=== PATIENT | male | born 1965 | race Caucasian/White ===

== ENCOUNTER 2017-04-05 08:17 | Emergency (ER) | payer OTHER ==
[~2017-04-05] VITALS: Ht 177.8 cm; Wt 84.5 kg
[2017-04-05 08:21] VITALS: TEMP 36.5; Ht 177.8 cm; Wt 84.5 kg
[2017-04-05] MEDS ORDERED: ONDANSETRON INJ 2 MG/ML 2 ML VIAL IV STA (08:44)
[2017-04-05] MEDS ORDERED: [UNRECOGNIZED DRUG - OTHER] PO (08:44)
[2017-04-05] MEDS ORDERED: SODIUM CHLORIDE 0.9% 1000ML 1,000 ML IV STA (08:44)
[2017-04-05] MEDS ORDERED: METO25TA56 PO (08:44)
[2017-04-05] MEDS ORDERED: MoRPHine SULFATE 4 MG/ML 1 ML CARP\\VIAL IV STA (08:44)
[2017-04-05] MEDS ORDERED: LSN25 PO (08:44)
[2017-04-05] MEDS ORDERED: ASPI81TA28 PO (08:44)
[2017-04-05 08:55] LABS: COMPLETE YES; EOS % 1.3 %; HEMATOCRIT 41.5 % (42-52); IG% 0.2 %; LYMPH % 10.1 %; LYMPH ABS # 1.24 K/uL (1.2-3.4); MEAN CELL VOLUME 91.8 fL (80-100); MEAN CORPUSCULAR HEMOGLOBIN 30.5 pg (25-34); MEAN CORPUSCULAR HGB CONC 33.3 g/dl (32-36); MEAN PLATELET VOLUME 8.2 fL (7.4-10.4); MONO % 9.4 %; PLATELET COUNT 440 K/uL (130-400); RED BLOOD COUNT 4.52 M/uL (4.7-6.1); WHITE BLOOD COUNT 12.26 K/uL (4.8-10.8)
[2017-04-05] MEDS ORDERED: OPTIRAY 320 IV PRN (09:00)
[2017-04-05 09:20] LABS: BUN/CREATININE RATIO 15.7 (10-20); CALCIUM 9.3 mg/dl (8.5-10.1); POTASSIUM 3.8 mmol/L (3.5-5.1)
[2017-04-05] MEDS ORDERED: MoRPHine SULFATE 10 MG/ML CARP/VIAL IV STA ×2 (09:23→11:16)
[2017-04-05 10:24] LABS: URINE APPEARANCE CLEAR (CLEAR); URINE BILIRUBIN NEG (NEG); URINE COLOR YELLOW; URINE EPITHELIAL CELL AUTO 0-5 /lpf (0-5); URINE NITRITE NEG (NEG); URINE PH 6.5 (4.5-7.5); URINE SPECIFIC GRAVITY 1.011 (1.000-1.030); UROBILINOGEN NEG (NEG); ZZUR CULT IF INDIC CLEAN CATCH NO
[2017-04-05 10:27] LABS: MANUAL MICROSCOPIC REQUIRED? NO; REVIEW REQ? NO
--- NOTE | 2017-04-05 10:29 | DIAGNOSTIC IMAGING REPORT ---
CT OF THE ABDOMEN AND PELVIS WITH CONTRAST CLINICAL HISTORY: Left lower quadrant abdominal pain. COMPARISON STUDY: None. TECHNIQUE: Following IV administration of 93 mL of Optiray-320, axial images of the abdomen and pelvis were obtained from the lung bases to the proximal femurs. Images were reviewed in the axial, sagittal, and coronal planes. IV contrast was administered without complication. A dose lowering technique was utilized adhering to the principles of ALARA. CT DOSE: 444.00 mGy.cm FINDINGS: The heart is mildly enlarged. There is extensive coronary artery calcification. Median sternotomy wires are noted and postsurgical findings suggestive of bypass grafting. The liver, spleen, adrenal glands, pancreas and kidneys are unremarkable. There is no peripancreatic or pericholecystic infiltration. No hydronephrosis is present. There is moderate atherosclerotic plaque of the abdominal aorta. Diverticulosis of the distal descending colon is noted with focal moderate wall thickening of the distal descending colon and moderate pericolonic infiltration. There is no free air or abscess. No suspicious osseous lesions are present. The appendix is normal. There is no bowel obstruction. There are suspected postsurgical findings within the bilateral inguinal canals. IMPRESSION: Acute diverticulitis of the distal descending colon. No free air or abscess. Moderate focal wall thickening and pericolonic infiltration. Trace pelvic ascites. Electronically signed by: Robin Diaz M.D. 04/05/2017 10:28 AM Dictated Date/Time: 04/05/2017 10:21 AM
[2017-04-05] MEDS ORDERED: METRONIDAZOLE 500MG / 100ML NSS IV STA (10:33)
[2017-04-05] MEDS ORDERED: CIPROFLOXACIN 500 MG TAB PO STA (10:33)
[2017-04-05] MEDS ORDERED: METR-162 PO (11:12)
[2017-04-05] MEDS ORDERED: CIPR-255 PO (11:12)
[2017-04-05] MEDS ORDERED: OXYC1TAB3 PO (11:12)
[2017-04-05 11:36] VITALS: BP 127/67; PULSE 62; O2SAT 97
--- NOTE | 2017-04-05 14:39 | EMERGENCY ROOM VISIT NOTE ---
History Report prepared by Mandeep: Gaby Keene Under the Supervision of: Dr. Robin Mcgregor D.O. First contact with patient: 08:26 Chief Complaint: ABDOMINAL PAIN Stated Complaint: LEFT LOWER ABD. PAIN Nursing Triage Summary: Left sided abd pain with nausea, started Tuesday and has gotten progressively worse. History of Present Illness The patient is a 52 year old male who presents to the Emergency Room with complaints of waxing and waning left lower quadrant abdominal pain beginning 2 days ago. The patient reports that his abdominal pain started out as a mild pain but then began to worsen and was at its worst last night. He reports that his pain radiates up and towards the middle of his abdomen. He also states that he had the chills last night and was nauseous this morning. The patient reports that he has no history of diverticulitis, or a cholecystectomy or appendectomy. He states that he has a CABG and takes Lopressor and baby aspirin. The patient reports that his last bowel movement was this morning. Pt denies headache, change in vision, fevers, chest pain, shortness of breath, vomiting, diarrhea, pain with urination, and melena. Source of History: patient Onset: 2 days ago Position: abdomen (LLQ) Timing: worsening Associated Symptoms: + chills, + nausea, No fevers, No chest pain, No SOB, No vomiting, No diarrhea Review of Systems See HPI for pertinent positives & negatives. A total of 10 systems reviewed and were otherwise negative. Past Medical & Surgical Surgical Problems: (1) Hx of CABG (2) Hx of CABG Family History No pertinent family history stated. Social History Smoking Status: Never Smoker Current/Historical Medications Scheduled Aspirin (Aspirin Ec), 81 MG PO DAILY Ciprofloxacin Hcl (Cipro), 500 MG PO BID Lisinopril (Lisinopril), 2.5 MG PO DAILY Metoprolol Tartrate (Lopressor) (Lopressor), 1 TAB PO DAILY Metronidazole (Flagyl), 1 TAB PO TID [Research Drug], 1 TAB PO DAILY Scheduled PRN Oxycodone Immediate Rel Tab (Roxicodone Ir), 5 MG PO Q6H PRN for Pain Allergies Coded Allergies: No Known Allergies (Unverified , 04/05/17) Physical Exam Vital Signs Date Time Temp Pulse Resp B/P (MAP) Pulse Ox O2 Delivery O2 Flow Rate FiO2 04/05/17 11:36 62 20 127/67 97 Room Air 04/05/17 10:04 72 20 130/89 97 Room Air 04/05/17 09:33 64 20 140/97 99 Room Air 04/05/17 08:21 36.5 73 16 148/95 98 Room Air Physical Exam GENERAL: Sitting up in bed, disheveled, alert, no acute distress, non-toxic EYE EXAM: normal conjunctiva OROPHARYNX: no exudate, no erythema, lips, buccal mucosa, and tongue normal and mucous membranes are moist NECK: supple, no nuchal rigidity, no adenopathy, non-tender LUNGS: Clear to auscultation. Normal chest wall mechanics HEART: no murmurs, S1 normal and S2 normal ABDOMEN: abdomen soft, tenderness to palpation in lower left quadrant, no rebound/guarding BACK: Back is symmetrical on inspection and there is no deformity, no midline tenderness, no CVA tenderness. SKIN: no rashes and no bruising UPPER EXTREMITIES: upper extremities are grossly normal. LOWER EXTREMITIES: No pitting edema. NEURO EXAM: Normal sensorium, cranial nerves II-XII grossly intact, normal speech, no gross weakness of arms, no gross weakness of legs. Medical Decision & Procedures ER Provider Diagnostic Interpretation: CT scan: Radiology provided the following report CT: CT OF THE ABDOMEN AND PELVIS WITH CONTRAST CLINICAL HISTORY: Left lower quadrant abdominal pain. COMPARISON STUDY: None. TECHNIQUE: Following IV administration of 93 mL of Optiray-320, axial images of the abdomen and pelvis were obtained from the lung bases to the proximal femurs. Images were reviewed in the axial, sagittal, and coronal planes. IV contrast was administered without complication. A dose lowering technique was utilized adhering to the principles of ALARA. CT DOSE: 444.00 mGy.cm FINDINGS: The heart is mildly enlarged. There is extensive coronary artery calcification. Median sternotomy wires are noted and postsurgical findings suggestive of bypass grafting. The liver, spleen, adrenal glands, pancreas and kidneys are unremarkable. There is no peripancreatic or pericholecystic infiltration. No hydronephrosis is present. There is moderate atherosclerotic plaque of the abdominal aorta. Diverticulosis of the distal descending colon is noted with focal moderate wall thickening of the distal descending colon and moderate pericolonic infiltration. There is no free air or abscess. No suspicious osseous lesions are present. The appendix is normal. There is no bowel obstruction. There are suspected postsurgical findings within the bilateral inguinal canals. IMPRESSION: Acute diverticulitis of the distal descending colon. No free air or abscess. Moderate focal wall thickening and pericolonic infiltration. Trace pelvic ascites. Electronically signed by: Robin Diaz M.D. 04/05/2017 10:28 AM Dictated Date/Time: 04/05/2017 10:21 AM Laboratory Results 04/05/17 08:35 Red Blood Count 4.52, Mean Corpuscular Volume 91.8, Mean Corpuscular Hemoglobin 30.5, Mean Corpuscular Hemoglobin Concent 33.3, Mean Platelet Volume 8.2, Neutrophils (%) (Auto) 79.0, Lymphocytes (%) (Auto) 10.1, Monocytes (%) (Auto) 9.4, Eosinophils (%) (Auto) 1.3, Basophils (%) (Auto) 0.0, Neutrophils # (Auto) 9.68, Lymphocytes # (Auto) 1.24, Monocytes # (Auto) 1.15, Eosinophils # (Auto) 0.16, Basophils # (Auto) 0.00 04/05/17 08:35 Test 04/05/17 08:35 04/05/17 10:00 White Blood Count 12.26 K/uL (4.8-10.8) Red Blood Count 4.52 M/uL (4.7-6.1) Hemoglobin 13.8 g/dL (14.0-18.0) Hematocrit 41.5 % (42-52) Mean Corpuscular Volume 91.8 fL (80-100) Mean Corpuscular Hemoglobin 30.5 pg (25-34) Mean Corpuscular Hemoglobin Concent 33.3 g/dl (32-36) Platelet Count 440 K/uL (130-400) Mean Platelet Volume 8.2 fL (7.4-10.4) Neutrophils (%) (Auto) 79.0 % Lymphocytes (%) (Auto) 10.1 % Monocytes (%) (Auto) 9.4 % Eosinophils (%) (Auto) 1.3 % Basophils (%) (Auto) 0.0 % Neutrophils # (Auto) 9.68 K/uL (1.4-6.5) Lymphocytes # (Auto) 1.24 K/uL (1.2-3.4) Monocytes # (Auto) 1.15 K/uL (0.11-0.59) Eosinophils # (Auto) 0.16 K/uL (0-0.5) Basophils # (Auto) 0.00 K/uL (0-0.2) RDW Standard Deviation 42.1 fL (36.4-46.3) RDW Coefficient of Variation 12.6 % (11.5-14.5) Immature Granulocyte % (Auto) 0.2 % Immature Granulocyte # (Auto) 0.03 K/uL (0.00-0.02) Anion Gap 6.0 mmol/L (3-11) Est Creatinine Clear Calc Drug Dose 87.2 ml/min Estimated GFR () 98.5 Estimated GFR (Non- 84.9 BUN/Creatinine Ratio 15.7 (10-20) Calcium Level 9.3 mg/dl (8.5-10.1) Total Bilirubin 0.6 mg/dl (0.2-1) Direct Bilirubin 0.1 mg/dl (0-0.2) Aspartate Amino Transf (AST/SGOT) 25 U/L (15-37) Alanine Aminotransferase (ALT/SGPT) 41 U/L (12-78) Alkaline Phosphatase 57 U/L (45-117) Total Protein 8.4 gm/dl (6.4-8.2) Albumin 4.3 gm/dl (3.4-5.0) Lipase 153 U/L (73-393) Urine Color YELLOW Urine Appearance CLEAR (CLEAR) Urine pH 6.5 (4.5-7.5) Urine Specific [place] 1.011 (1.000-1.030) Urine Protein NEG (NEG) Urine Glucose (UA) NEG (NEG) Urine Ketones NEG (NEG) Urine Occult Blood NEG (NEG) Urine Nitrite NEG (NEG) Urine Bilirubin NEG (NEG) Urine Urobilinogen NEG (NEG) Urine Leukocyte Esterase NEG (NEG) Urine WBC (Auto) 0 /hpf (0-5) Urine RBC (Auto) 0-4 /hpf (0-4) Urine Hyaline Casts (Auto) 0 /lpf (0-5) Urine Epithelial Cells (Auto) 0-5 /lpf (0-5) Urine Bacteria (Auto) NEG (NEG) Laboratory results per my review. Medications Administered Medications (Trade) Dose Ordered Sig/Karine Route Start Time Stop Time Status Last Admin Dose Admin Sodium Chloride 1,000 ml @ 999 mls/hr Q1H1M STAT IV 04/05/17 08:44 04/05/17 09:44 DC 04/05/17 08:44 999 MLS/HR Ondansetron HCl (Zofran Inj) 4 mg NOW STAT IV 04/05/17 08:44 04/05/17 08:46 DC 04/05/17 08:51 4 MG Morphine Sulfate (MoRPHine SULFATE INJ) 4 mg NOW STAT IV 04/05/17 08:44 04/05/17 08:46 DC 04/05/17 08:51 4 MG Morphine Sulfate (MoRPHine SULFATE INJ) 6 mg NOW STAT IV 04/05/17 09:23 04/05/17 09:24 DC 04/05/17 09:35 6 MG Metronidazole (Flagyl / Nss) 500 mg NOW STAT IV 04/05/17 10:33 04/05/17 10:35 DC 04/05/17 11:05 500 MG Ciprofloxacin (Cipro Tab) 500 mg NOW STAT PO 04/05/17 10:33 04/05/17 10:35 DC 04/05/17 11:05 500 MG Morphine Sulfate (MoRPHine SULFATE INJ) 6 mg NOW STAT IV 04/05/17 11:16 04/05/17 11:17 DC 04/05/17 11:19 6 MG ED Course ED COURSE: Vital signs were reviewed and showed hypertension. The patients medical record was reviewed The above diagnostic studies were performed and reviewed. ED treatments and interventions as stated above. 0843: The patient was evaluated in room B9. A complete history and physical examination was performed. 0844: Ordered Morphine Sulfate 4 mg IV, Zofran Inj 4 mg IV, Sodium Chloride 1, 000 ml @ 999 mls/hr IV. 0923: Ordered Morphine Sulfate 6 mg IV. 1033: Ordered Cipro Tab 500 mg PO, Metronidazole 500 mg IV. 1103: I updated the patient and he is doing well. 1116: Ordered Morphine Sulfate 6 mg IV. 1120: Upon reevaluation, the patient is feeling better. I discussed the findings and the treatment plan with the patient. He verbalizes agreement and understanding. He was discharged home. Medical Decision Differential diagnoses includes but is not limited to gastritis, peptic ulcer disease, GERD, gallbladder disease, pancreatitis, small bowel obstruction, acute coronary syndrome, pericarditis, ischemic bowel, irritable bowel disease, irritable bowel syndrome, appendicitis, diverticulitis, malignancy, hernia, urinary tract infection, torsion, [/ectopic (if female)], perforation, trauma, infectious. Blood Pressure Screening: The patient was found to have a slightly elevated blood pressure due to circumstances. I do not believe that the patient requires hypertension monitoring. Medication Reconciliation: I attest that I have personally reviewed the patient' s current medication list. Patient is a 52-year-old male who presents the ER for left lower quadrant abdominal pain which is been progressive for the past several days. On exam he is tender. CT shows acute diverticulitis. No perforation. Vitals are stable. Labs show a mild leukocytosis. Patient was given IV Flagyl and oral Cipro. Pain was controlled with IV morphine. He was updated bedside. He was discharged follow with PCP in 2-5 days. Discussed with Pt concerning signs and symptoms to watch out for. Pt was instructed to follow up with their PCP and discussed with the patient their option to return to the ED at anytime for persistent or worsening symptoms. The appropriate anticipatory guidance and out- patient management, including indications for return to the emergency department , were explained at length to the patient and understood. [place] Drug Monitoring Program Search Results: patient reviewed within database, no issues identified Impression Primary Impression: Diverticulitis Scribe Attestation The scribe's documentation has been prepared under my direction and personally reviewed by me in its entirety. I confirm that the note above accurately reflects all work, treatment, procedures, and medical decision making performed by me. Departure Information Dispostion Home / Self-Care Prescriptions Oxycodone Immediate Rel Tab (ROXICODONE IR) 5 Mg Tab 5 MG PO Q6H Y for Pain, #15 TAB Prov: Robin Mcgregor, DO 04/05/17 Ciprofloxacin Hcl (CIPRO) 500 Mg Tab 500 MG PO BID, #20 TAB Prov: Robin Mcgregor, DO 04/05/17 Metronidazole (FLAGYL) 500 Mg Tab 1 TAB PO TID for 10 Days, #30 TAB Prov: Robin Mcgregor, DO 04/05/17 Referrals No Doctor, Assigned (PCP) Forms Call Back Authorization, HOME CARE DOCUMENTATION FORM, IMPORTANT VISIT INFORMATION Patient Instructions Diverticulitis Ivan, My [facility] Additional Instructions Please follow up with your primary care doctor or if you are a student, [facility] with in the next 24 hours. Any worsening of your symptoms, please return to the ED immediately. This includes any fevers greater than 100.4, worsening pain, chest pain, shortness breath, persistent nausea, vomiting, unable to eat or drink, or any other concerning signs or symptoms from your standpoint. You were given medications during this visit that will inhibit your ability to drive, operate machinery and work. Please do NOT drive, operate machinery, drink alcohol or work for the next 12hrs. Please take antibiotic as prescribed. Please do not drink alcohol while taking these medications as she will become sick. Any worsening of your symptoms again please return immediately to the ER. Problem Qualifiers Primary Impression: Diverticulitis Diverticulitis site: large intestine Diverticulitis bleeding: without bleeding Diverticulitis complication: without perforation or abscess Qualified Codes: K57.32 - Diverticulitis of large intestine without perforation or abscess without bleeding
== END 2017-04-05 12:34 | disposition home or self-care (01) ==
LOC: C.EDB 08:19
DX: K57.92 Diverticulitis of intestine, part unspecified, without perforation or abscess without bleeding (principal); Z98.61 Coronary angioplasty status; Z79.82 Long term (current) use of aspirin; Z79.899 Other long term (current) drug therapy